=== PATIENT | male | born 1995 | race Caucasian/White ===

== ENCOUNTER 2021-02-11 04:42 | Emergency (ER) | payer BC, SELFPAY ==
[2021-02-11 04:50] VITALS: BP 116/66; PULSE 70; RESP 16; TEMP 35.7; O2SAT 100; BMI 24.3
--- NOTE | 2021-02-11 06:58 | ED.DENTAL ---
HPI - Dental/Oral General Chief complaint: Dental/Oral Stated complaint: Dental pain Time Seen by Provider: 02/11/21 06:58 Source: patient Mode of arrival: ambulatory Limitations: no limitations History of Present Illness HPI Narrative: Patient with impacted molar, saw the dentist last night, did not get any abx or pain medication. Patient has had intermittent pain for months but the last 3 days it has increased MD Complaint: tooth pain Onset (ago): month(s) Duration: constant Severity: moderate Related Data Previous Rx's Medication Instructions Recorded cephalexin 500 mg capsule 500 mg PO Q6H 10 Days #40 cap 02/11/21 naproxen 500 mg tablet (Naprosyn) 500 mg PO BID #20 tab 02/11/21 Allergies Allergy/AdvReac Type Severity Reaction Status Date / Time amoxicillin Allergy Rash Verified 02/11/21 04:49 Penicillins Allergy Rash Verified 02/11/21 04:49 Review of Systems Constitutional: Constitutional: Reports no additional constitutional complaints Eyes: Eyes: Reports no additional eye complaints ENT: Denies dizziness Cardiovascular: Cardiovascular: Reports no additional cardiovascular complaints Respiratory: Respiratory: Reports as per HPI Gastrointestinal: Gastrointestinal: Reports no additional gastrointestinal complaints Musculoskeletal: Musculoskeletal: Reports no additional musculoskeletal complaints Integumentary/Breasts: Skin/Breast: Denies rash Neurologic: Reports system reviewed and no additional complaints, except as documented, Denies dizziness and Denies Sensory deficit (Neuro) Psychiatric: Psychiatric: Denies anxiety PMF Past Medical History Surgical History (Updated 02/11/21 @ 04:51 by Ariana Turner) Hx of appendectomy Social History Social History Alcohol intake: never Patient Tobacco Use Status: Never used Tobacco Use of substances other than those prescribed or required for medical reasons: No Advance Directives: No Physical Exam Vital Signs: Vital Signs: Last Vital Signs Temp 96.3 F L 02/11/21 04:50 Pulse 70 02/11/21 04:50 Resp 16 02/11/21 04:50 BP 116/66 02/11/21 04:50 Pulse Ox 100 02/11/21 04:50 BMI result Body Mass Index 24.3 Const: General: healthy appearing Nutritional Appearance: average body habitus Orientation/consciousness: oriented to person and patient oriented x3 Limitations: no limitations HENMT: Other: no evidence of infection no abscess or swelling Head: Yes normal to inspection Ears: external ears normal General nose exam: Normal external nose present Mouth: Normal oral and palatal mucosa present and oropharynx normal Throat: Yes posterior oropharynx normal Eyes: General: appearance normal, both eyes and all related structures Neck: Other: supple Neck: Yes normal visual inspection Chest: Chest palpation & inspection: normal inspection of the chest Resp: Auscultation: clear to auscultation bilaterally Cardio: Jugular venous distension: no JVD Rate: regular rate Rhythm: regular rhythm Heart sounds: S1 normal heart sound present and S2 normal heart sound present GI: Inspection: Yes normal to inspection Palpation (GI): Soft to palpation, nontender and No hepatosplenomegaly present Auscultation: normal bowel sounds : General: Yes no CVA tenderness Back/Spine/Pelvis: Back: no CVA tenderness Skin: General skin exam: no rashes or lesions noted Neuro: General: oriented to person and patient oriented x3 Cranial nerves: Yes CN's II-XII intact bilaterally Motor exam (neuro): 5/5 motor strength present throughout Sensory Exam: No Sensory deficit (Neuro) Extrem: General: Yes normal to inspection Psych: Appearance: grossly normal Course Reevaluation(s) Reevaluation #1: patient with impacted molars likely now with infection, will start keflex as patient has pcn allergy and NSAIDS Time: 07:04 Discharge Plan Discharge Clinical Impression: Toothache Patient Disposition: Home, Self-Care Instructions: Toothache (ED) Prescriptions: New cephalexin 500 mg capsule 500 mg PO Q6H 10 Days Qty: 40 RF: 0 naproxen [Naprosyn] 500 mg tablet 500 mg PO BID Qty: 20 RF: 0 Referrals: Physician,Unknown J [Primary Care Provider] - 10 days Interventions: ED Discharge Assessment Last Done: 02/11/21 07:33 Discharge Date/Time: 02/11/21 07:35
[2021-02-11] MEDS: cephALEXin 500 MG CAPSULE PO (07:25)
[2021-02-11] MEDS: Ketorolac Tromethamine 60 MG/2 ML VIAL IM (07:25)
--- NOTE | 2021-02-11 07:34 | PC.NURSE ---
Pt comes in with Bilateral upper and lower dental pain, saw oral surgeon yesterday for 4 impacted wisdom teeth, plan for surgery in 0 days but patient unable to tolerate pain. Pt is A&Ox3, pain 10/10, no other complaints at this time.
== END 2021-02-11 07:35 | disposition home or self-care (01) ==
PROVIDERS: Emergency Provider Emergency Medicine
DX: K08.89 Other specified disorders of teeth and supporting structures (principal)
CPT/HCPCS: 96372; 99284; J1885